=== PATIENT | female | born 1970 | race Caucasian/White ===

== ENCOUNTER 2016-10-19 18:54 | Emergency (ER) | payer OTHER ==
[~2016-10-19] VITALS: Ht 161.3 cm; Wt 140.0 kg
[~2016-10-19 18:54] MED LIST: HYDR-2758 PO; MULT-245 PO; ONDA8TAB12 PO; dicyclomine PO; ranitidine PO
[2016-10-19] MEDS ORDERED: HYDROcodone/APAP 10/325 1 TAB TABLET PO ONE (19:30)
[2016-10-19 19:46] LABS: BILIRUBIN,URINE NEG (NEG); CLARITY,URINE CLOUDY; COLOR,URINE YELLOW; GLUCOSE,URINE NEG (NEG); NITRITE,URINE NEG (NEG); UROBILINOGEN,URINE 0.2 mg/dL (0.2 mg/dL)
[2016-10-19 19:47] LABS: BACTERIA,URINE FEW /HPF (0-FEW); RBC,URINE 20-40 /HPF (0-2); SQUAMOUS EPITHELIAL CELL,UR FEW /LPF; WBC,URINE TNTC /HPF (0-4)
[2016-10-19 20:00] VITALS: BP 118/70
[2016-10-19 20:13] LABS: U PREG PATIENT NEGATIVE (NEG)
--- NOTE | 2016-10-19 20:48 | RAD ---
CT of the abdomen and pelvis without contrast, 10/19/2016: HISTORY: Right-sided pain Noncontrast scans were obtained through the urinary tract utilizing the renal stone protocol. No intrarenal calculi are identified. The left renal collecting system and visualized portions of the left ureter are unremarkable. The right renal pelvis is mildly dilated as is the proximal right ureter. There appears to be mild periureteral edema at this level. The distal ureter cannot be clearly traced through the pelvis in this patient. No radiopacity is seen along the course of the distal right ureter to suggest a current ureteral calculus. The partially filled urinary bladder is unremarkable. There is minimal atelectasis or scarring in the lung bases posteriorly. The gallbladder is surgically absent. The unopacified liver shows no abnormality. The pancreas is unremarkable. The spleen is of normal size. The uterus is unremarkable. Several small bilateral pelvic calcifications are probably phleboliths. There is a surgical clip in the deep pelvis on the right. The bowel loops are not dilated. The appendix is visualized and shows no abnormality. No free fluid or free air is evident in the abdomen or pelvis. IMPRESSION: 1. No urinary tract calculus is identified. 2. There is mild dilatation of the right renal pelvis and proximal right ureter with mild periureteral edema. The findings raise the possibility of recent passage of a ureteral calculus versus infection. Electronically signed by: Prakash Harkins MD (10/19/2016 8:45 PM) [id number]
[2016-10-19] MEDS ORDERED: levoFLOXacin 500 MG TABLET PO ONE (21:15)
--- NOTE | 2016-10-23 06:59 | ED.ADGEN ---
Past History Past Medical History: Gallstones, Other Past Surgical History: Other Smoking: Non-smoker Alcohol Use: None Drug Use: None Adult General Chief Complaint Chief Complaint R Flank pain` HPI HPI Patient is a 46-year-old female who presents with right flank/lower back pain for the past several hours. Pain is described as dull and aching is rated moderate to severe. It is worse with trunk rotation, and palpation. Associated symptoms include nausea and vomiting. She reports urinary frequency and burning. Denies hematuria or history of kidney stones. Denies fevers chills, sweats. Denies constipation, chronic back pain, extremity weakness or loss of sensation. Patient taken [id number] pain medications with limited relief. She is accompanied by side by spouse. Review of Systems Review of Systems Review of systems as per history of present illness. All other review symptoms are negative. Current Medications Current Medications Current Medications Medications (Trade) Dose Ordered Sig/Chelsea Start Time Stop Time Status Last Admin Dose Admin Acetaminophen/ Hydrocodone Bitart (Lortab 10/325) 1 tab 1X ONCE 10/19/16 19:30 10/19/16 19:31 DC 10/19/16 19:29 1 TAB Levofloxacin (Levaquin) 500 mg 1X ONCE 10/19/16 21:15 10/19/16 21:16 DC 10/19/16 20:59 500 MG Allergies Allergies Allergies Coded Allergies Type Severity Reaction Last Updated Verified No Known Drug Allergies 06/27/13 No Physical Exam Physical Exam Constitutional: Well developed, well nourished, no acute distress, non-toxic appearance. [] HENT: Normocephalic, atraumatic, bilateral external ears normal, oropharynx moist, no oral exudates, nose normal. [] Eyes: PERRLA, EOMI, conjunctiva normal, no discharge. [] Neck: Normal range of motion, no tenderness, supple, no stridor. [] Cardiovascular:Heart rate regular rhythm, no murmur [] Lungs & Thorax: Bilateral breath sounds clear to auscultation [] Abdomen: Bowel sounds normal, soft, no tenderness, no masses, no pulsatile masses. [] Skin: Warm, dry, no erythema, no rash. [] Back: R CVA tenderness. [] Extremities: No tenderness, no cyanosis, no clubbing, ROM intact, no edema. [] Neurologic: Alert and oriented X 3, normal motor function, normal sensory function, no focal deficits noted. [] Psychologic: Affect normal, judgement normal, mood normal. [] Current Patient Data Vital Signs Vital Signs Date Time Temp Pulse Resp B/P (MAP) Pulse Ox O2 Delivery O2 Flow Rate FiO2 10/19/16 20:00 70 18 118/70 (86) 98 Room Air 10/19/16 18:54 98.8 Lab Results Laboratory Tests Test 10/19/16 19:10 Urine Collection Type Unknown Urine Color Yellow Urine Clarity Cloudy Urine pH 6.0 Urine Specific [place] 1.020 Urine Protein 100 mg/dl (NEG-TRACE) Urine Glucose (UA) Neg mg/dL (NEG) Urine Ketones (Stick) Neg mg/dL (NEG) Urine Blood Large (NEG) Urine Nitrite Neg (NEG) Urine Bilirubin Neg (NEG) Urine Urobilinogen Dipstick 0.2 mg/dL (0.2 mg/dL) Urine Leukocyte Esterase Large (NEG) Urine RBC 20-40 /HPF (0-2) Urine WBC Tntc /HPF (0-4) Urine Squamous Epithelial Cells Few /LPF Urine Bacteria Few /HPF (0-FEW) Urine Test Negative (NEG) Microbiology 10/19/16 Urine Culture - Final, Complete 10/19/16 Urine Culture Result 1 (HERMINIO) - Final, Complete 10/19/16 Antimicrobic Susceptibility - Final, Complete EKG EKG [] Radiology/Procedures Radiology/Procedures [CT abdomen pelvis: Study consistent with possible passed ureteral stone versus infection per radiology report.] Course & Med Decision Making Course & Med Decision Making Pertinent Labs and Imaging studies reviewed. (See chart for details) [Patient's pain improved with treatment. Antibiotics given in the emergency department. Instructions to increase fluids, continue home antibiotics and pain medication as needed with close PCP follow-up. Return precautions reviewed. Patient verbalizes understanding agreement with discharge instructions prior to departure.] Final Impression Final Impression [1. Right flank pain 2. UTI 3. hematuria] Problems: Dragon Disclaimer Dragon Disclaimer This electronic medical record was generated, in whole or in part, using a voice recognition dictation system. ROC MCCARTHY DO Oct 23, 2016 06:59
== END 2016-10-19 21:00 | disposition home or self-care (01) ==
LOC: ER 18:54
DX: N39.0 Urinary tract infection, site not specified (principal); R31.9 Hematuria, unspecified
CPT/HCPCS: 74176; 81001; 81025; 87086; 87186; 99285-25